=== PATIENT | female | born 1930 | race Caucasian/White ===

== ENCOUNTER 2016-12-19 16:06 | Inpatient (IN) | payer OTHER ==
[~2016-12-19] VITALS: Ht 160 cm; Wt 74.1 kg
[~2016-12-19 16:06] MED LIST: Ascorbic Acid,Ester- PO; Coumadin Protocol PO; Dulcolax PO; HYDRODIURIL,ORE25 MG PO; Hydrodiuril,Oretic,E PO; LASIX20 MG PO; LEVOTHYROXINE75 MCG PO; LORTAB 7.5/51 TABLET PO; Levothroid,Synthroid PO; MAGNESIUM250 MG PO; METOPROLOL TAR100 MG PO; Oscal 500 w/Vitamin PO; PARAFON FORTE500 MG PO; POTASSIUM CHLO10 ME3 PO; PRAVACHOL10 MG PO; PRAVASTATIN SOD10 MG PO; Santyl TP; TOPROL XL100 MG PO; Tylenol Regular Stre PO; WARFARIN SODIUM5 MG PO; XOPENEX1.25 MG/0. IH
[2016-12-19 16:35] LABS: EOSINOPHIL (%) 1.4 % (0-5); EOSINOPHIL COUNT 0.1 K/uL (0-0.3); HEMATOCRIT 40.9 % (36.0-46.0); IMMATURE GRANULOCYTE (%) 0.1 % (0.0-0.7); INSTRUMENT ABS NEUTROPHIL CT 4.9 K/uL; LYMPHOCYTE COUNT 1.7 K/uL (1.0-2.8); MCH 32.1 PG (29.0-34.0); MCHC 33.3 G/DL (30.0-36.0); MCV 96.5 FL (83-99); MEAN PLAT.VOLUME 10.9 uM^3 (9.5-12.4); MONOCYTE (%) 8.3 % (3-12); MONOCYTE COUNT 0.6 K/uL (0-0.8); NEUTROPHIL (%) 66.6 % (45-76); NEUTROPHIL COUNT 4.9 K/uL (1.8-6.4); PLATELET COUNT 154 K/uL (156-360); RBC DIS.WIDTH-CV 12.9 % (11.8-14.6); RBC DIS.WIDTH-SD 45.9 % (39-53); RED BLOOD COUNT 4.24 M/uL (3.80-5.20); WHITE BLOOD COUNT 7.4 K/uL (4.1-10.2)
[2016-12-19 16:42] LABS: INTER. NORMALIZED RATIO 1.8; PROTHROMBIN TIME 19.7 SEC (10.2-12.9)
[2016-12-19 16:43] LABS: CHLORIDE 106 mEq/L (99-109); POTASSIUM 3.8 mEq/L (3.7-5.4); SODIUM 140 mEq/L (136-147)
[2016-12-19 16:46] LABS: GLUCOSE 135 mg/dL (70-99)
[2016-12-19 16:47] LABS: ANION GAP 11 MEQ/L (2-14); TOTAL BILIRUBIN 1.1 mg/dL (0.0-1.0)
[2016-12-19 16:49] LABS: ALKALINE PHOSPHATASE 99 IU/L (3-129); GFR ESTIMATE (CALCULATED) 38 mL/min/
[2016-12-19 16:50] LABS: UREA NITROGEN (BUN) 18 mg/dL (9-23)
[2016-12-19 18:51] LABS: ADD MIUA? NO; BILIRUBIN NEGATIVE; BLOOD NEGATIVE; COLOR STRAW ((YELLOW)); GLUCOSE (STRIP) 50; KETONES 5; LEUKOCYTES NEGATIVE; NITRITE NEGATIVE; PROTEIN (STRIP) NEGATIVE; SPECIFIC GRAVITY 1.009 (1.000-1.030); UCUL ADDED? NO; UROBILINOGEN 0.2 MG/DL (0.2-1.0)
[2016-12-19] MEDS ORDERED: WARFARIN SODIUM4 MG PO (20:35)
[2016-12-19] MEDS ORDERED: LOPRESSOR50 MG PO (20:36)
[2016-12-19] MEDS ORDERED: MAGNESIUM400 M1 PO (20:36)
[2016-12-19] MEDS ORDERED: VITAMIN D34000 UNIT PO (20:37)
[2016-12-19 23:28] VITALS: BP 123/69
[2016-12-20 03:31] VITALS: BP 106/63
[2016-12-20 07:07] LABS: MCH 33.3 PG (29.0-34.0); MEAN PLAT.VOLUME 11.5 uM^3 (9.5-12.4); PLATELET COUNT 146 K/uL (156-360); RBC DIS.WIDTH-CV 13.2 % (11.8-14.6); RBC DIS.WIDTH-SD 47.8 % (39-53); RED BLOOD COUNT 3.57 M/uL (3.80-5.20); WHITE BLOOD COUNT 9.7 K/uL (4.1-10.2)
[2016-12-20 07:12] LABS: INTER. NORMALIZED RATIO 1.6; PROTHROMBIN TIME 17.4 SEC (10.2-12.9)
[2016-12-20 07:33] VITALS: BP 137/80
[2016-12-20 07:37] LABS: ANION GAP 10 MEQ/L (2-14); CHLORIDE 103 MEQ/L (99-109); GFR ESTIMATE (CALCULATED) 45 mL/min/; GLUCOSE 105 mg/dL (70-99); POTASSIUM 4.4 MEQ/L (3.7-5.4); SAMPLE HEMOLYSIS CHECK 0; SAMPLE ICTERIC CHECK 0; SAMPLE LIPEMIA CHECK 0; SODIUM 142 MEQ/L (136-147); UREA NITROGEN (BUN) 19 mg/dL (9-23)
[2016-12-20 10:49] VITALS: BP 123/64
[2016-12-20 15:33] VITALS: BP 119/82
[2016-12-20 19:54] VITALS: BP 131/61
[2016-12-20 23:28] VITALS: BP 132/81
[2016-12-21 03:52] VITALS: BP 129/73
[2016-12-21 05:57] LABS: HEMATOCRIT 36.3 % (36.0-46.0); MCH 33.3 PG (29.0-34.0); MCHC 33.9 G/DL (30.0-36.0); MCV 98.4 FL (83-99); MEAN PLAT.VOLUME 11.4 uM^3 (9.5-12.4); PLATELET COUNT 133 K/uL (156-360); RBC DIS.WIDTH-CV 13.1 % (11.8-14.6); RBC DIS.WIDTH-SD 46.9 % (39-53); RED BLOOD COUNT 3.69 M/uL (3.80-5.20); WHITE BLOOD COUNT 10.4 K/uL (4.1-10.2)
[2016-12-21 06:30] LABS: ANION GAP 10 MEQ/L (2-14); CHLORIDE 104 MEQ/L (99-109); GFR ESTIMATE (CALCULATED) 56 mL/min/; GLUCOSE 140 mg/dL (70-99); POTASSIUM 4.4 MEQ/L (3.7-5.4); SAMPLE HEMOLYSIS CHECK 0; SAMPLE ICTERIC CHECK 0; SAMPLE LIPEMIA CHECK 0; SODIUM 138 MEQ/L (136-147); UREA NITROGEN (BUN) 25 mg/dL (9-23)
[2016-12-21 07:27] VITALS: BP 117/77
[2016-12-21 10:58] VITALS: BP 126/68
[2016-12-21 13:13] LABS: INTER. NORMALIZED RATIO 1.2; PROTHROMBIN TIME 13.1 SEC (10.2-12.9)
[2016-12-21 15:57] VITALS: BP 168/76
[2016-12-21 18:53] LABS: INTER. NORMALIZED RATIO 1.2; PROTHROMBIN TIME 12.9 SEC (10.2-12.9)
[2016-12-21 20:18] VITALS: BP 100/55
[2016-12-21 23:42] VITALS: BP 96/72
[2016-12-22] VITALS (7 sets, daily range): BP systolic 92–161; BP diastolic 56–76
[2016-12-22 07:01] LABS: INTER. NORMALIZED RATIO 1.3
[2016-12-22 07:08] LABS: HEMATOCRIT 29.7 % (36.0-46.0); MCH 34.3 PG (29.0-34.0); MCHC 34.7 G/DL (30.0-36.0); MEAN PLAT.VOLUME 11.3 uM^3 (9.5-12.4); PLATELET COUNT 135 K/uL (156-360); RBC DIS.WIDTH-CV 13.2 % (11.8-14.6); RBC DIS.WIDTH-SD 46.7 % (39-53); WHITE BLOOD COUNT 10.4 K/uL (4.1-10.2)
[2016-12-22 07:18] LABS: TROP-I INTERPRETATION NEGATIVE; TROPONIN-I 0.03 ng/mL (0.0-0.30)
[2016-12-22 07:24] LABS: ANION GAP 9 MEQ/L (2-14); CHLORIDE 104 MEQ/L (99-109); GFR ESTIMATE (CALCULATED) 45 mL/min/; GLUCOSE 125 mg/dL (70-99); POTASSIUM 4.6 MEQ/L (3.7-5.4); SAMPLE HEMOLYSIS CHECK 0; SAMPLE ICTERIC CHECK 0; SAMPLE LIPEMIA CHECK 0; SODIUM 138 MEQ/L (136-147); UREA NITROGEN (BUN) 28 mg/dL (9-23)
[2016-12-22 17:07] LABS: INTER. NORMALIZED RATIO 1.3; PROTHROMBIN TIME 14.3 SEC (10.2-12.9)
[2016-12-23 04:39] VITALS: BP 155/72
[2016-12-23 06:16] LABS: HEMATOCRIT 29.3 % (36.0-46.0); MCH 33.1 PG (29.0-34.0); MCHC 33.8 G/DL (30.0-36.0); MEAN PLAT.VOLUME 10.8 uM^3 (9.5-12.4); PLATELET COUNT 155 K/uL (156-360); RBC DIS.WIDTH-CV 13.1 % (11.8-14.6); RBC DIS.WIDTH-SD 46.6 % (39-53); RED BLOOD COUNT 2.99 M/uL (3.80-5.20); WHITE BLOOD COUNT 10.1 K/uL (4.1-10.2)
[2016-12-23 06:40] LABS: ANION GAP 8 MEQ/L (2-14); CHLORIDE 106 MEQ/L (99-109); GFR ESTIMATE (CALCULATED) > 59 mL/min/; GLUCOSE 122 mg/dL (70-99); POTASSIUM 4.2 MEQ/L (3.7-5.4); SAMPLE HEMOLYSIS CHECK 0; SAMPLE ICTERIC CHECK 0; SAMPLE LIPEMIA CHECK 0; SODIUM 139 MEQ/L (136-147); UREA NITROGEN (BUN) 19 mg/dL (9-23)
[2016-12-23 06:41] LABS: INTER. NORMALIZED RATIO 1.5; PROTHROMBIN TIME 16.4 SEC (10.2-12.9)
[2016-12-23 07:49] VITALS: BP 149/82
[2016-12-23 10:58] VITALS: BP 104/56
[2016-12-23 15:40] VITALS: BP 118/61
[2016-12-23 15:45] LABS: INTER. NORMALIZED RATIO 1.5; PROTHROMBIN TIME 16.6 SEC (10.2-12.9)
[2016-12-23 19:50] VITALS: BP 114/66
[2016-12-23 23:25] VITALS: BP 107/52
[2016-12-24 04:02] VITALS: BP 120/65
[2016-12-24 06:44] LABS: INTER. NORMALIZED RATIO 1.6; PROTHROMBIN TIME 17.7 SEC (10.2-12.9)
[2016-12-24 07:35] VITALS: BP 100/65
[2016-12-24] MEDS ORDERED: SENNA PLUS TAB1 EACH PO (10:05)
[2016-12-24] MEDS ORDERED: OXYCODONE HCL5 MG PO (10:05)
[2016-12-24] MEDS ORDERED: POLYETHYLENE GL17 GM PO (10:05)
[2016-12-24] MEDS ORDERED: LIDOCAINE1 EACH TD (10:05)
[2016-12-24] MEDS ORDERED: THERAGRAN1 TABLET PO (14:31)
[2016-12-24] MEDS ORDERED: SENOKOT S,PE1 TABLET PO (14:32)
[2016-12-24] MEDS ORDERED: COLACE100 MG PO (14:33)
[2016-12-24] MEDS ORDERED: TUMS500 MG PO (14:33)
[2016-12-24] MEDS ORDERED: DULCOLAX10 MG PR (14:34)
[2016-12-24] MEDS ORDERED: ZOFRAN4 MG PO (14:35)
[2016-12-24] MEDS ORDERED: TORADOL10 MG IV ×2 (14:36→14:37)
[2016-12-24] MEDS ORDERED: NORCO 5/3251 TABLET PO (14:37)
== END 2016-12-24 13:47 | DRG 481 ==
LOC: EME 16:06 → 3EAST 18:29 → EDOF 18:29 → ENRESERV 18:29 → 3EAST 20:40
PROVIDERS: Emergency Medicine; Hospitalist; Internal Medicine; Internal Medicine Cardiovascular Disease; Orthopaedic Surgery; Physician Assistant
PROC: 0QS604Z Reposition Right Upper Femur with Internal Fixation Device, Open Approach (ICD-10-PCS; principal; 2016-12-21)
DX: S72.141A Displaced intertrochanteric fracture of right femur, initial encounter for closed fracture (principal); S09.90XA Unspecified injury of head, initial encounter; W01.0XXA Fall on same level from slipping, tripping and stumbling without subsequent striking against object, initial encounter; Y92.009 Unspecified place in unspecified non-institutional (private) residence as the place of occurrence of the external cause; D62 Acute posthemorrhagic anemia; I95.9 Hypotension, unspecified; I11.0 Hypertensive heart disease with heart failure; I50.9 Heart failure, unspecified; I48.2 Chronic atrial fibrillation; K59.00 Constipation, unspecified; E03.9 Hypothyroidism, unspecified; R07.9 Chest pain, unspecified; N39.3 Stress incontinence (female) (male); E78.5 Hyperlipidemia, unspecified; K21.9 Gastro-esophageal reflux disease without esophagitis; M81.0 Age-related osteoporosis without current pathological fracture; Z79.01 Long term (current) use of anticoagulants; Z86.711 Personal history of pulmonary embolism
CPT/HCPCS: 70450; 71010; 73501; 73502; 73552; 76000; 80048; 80053; 81003; 84484; 85025; 85027; 85610; 86900; 86901; 93005; 94799; 99281; 99285; C1713; J0330; J0690; J1170; J1885; J1940; J2250; J2270; J2405; J2710; J3010; J7120

== ENCOUNTER 2016-12-24 12:02 | Inpatient (IN) | payer OTHER ==
[~2016-12-24] VITALS: Ht 160 cm; Wt 54.6 kg
[~2016-12-24 12:02] MED LIST changes: +LIDOCAINE1 EACH TD; +LOPRESSOR50 MG PO; +MAGNESIUM400 M1 PO; +OXYCODONE HCL5 MG PO; +POLYETHYLENE GL17 GM PO; +SENNA PLUS TAB1 EACH PO; +VITAMIN D34000 UNIT PO; +WARFARIN SODIUM4 MG PO
[2016-12-24 14:11] VITALS: BP 98/68
[2016-12-24] MEDS ORDERED: THERAGRAN1 TABLET PO (14:31)
[2016-12-24] MEDS ORDERED: SENOKOT S,PE1 TABLET PO (14:32)
[2016-12-24] MEDS ORDERED: TUMS500 MG PO (14:33)
[2016-12-24] MEDS ORDERED: COLACE100 MG PO (14:33)
[2016-12-24] MEDS ORDERED: DULCOLAX10 MG PR (14:34)
[2016-12-24] MEDS ORDERED: ZOFRAN4 MG PO (14:35)
[2016-12-24] MEDS ORDERED: TORADOL10 MG IV ×2 (14:36→14:37)
[2016-12-24] MEDS ORDERED: NORCO 5/3251 TABLET PO (14:37)
[2016-12-24 23:30] VITALS: BP 130/58
[2016-12-25 05:42] VITALS: BP 126/72
[2016-12-25 05:50] LABS: HEMATOCRIT 27.2 % (36.0-46.0); MCH 33.6 PG (29.0-34.0); MCHC 34.2 G/DL (30.0-36.0); MCV 98.2 FL (83-99); MEAN PLAT.VOLUME 10.4 uM^3 (9.5-12.4); PLATELET COUNT 183 K/uL (156-360); RBC DIS.WIDTH-CV 13.2 % (11.8-14.6); RBC DIS.WIDTH-SD 46.8 % (39-53); RED BLOOD COUNT 2.77 M/uL (3.80-5.20); WHITE BLOOD COUNT 9.1 K/uL (4.1-10.2)
[2016-12-25 05:59] LABS: PROTHROMBIN TIME 23.1 SEC (10.2-12.9)
[2016-12-25 07:18] LABS: ALKALINE PHOSPHATASE 88 IU/L (3-129); ANION GAP 5 MEQ/L (2-14); CHLORIDE 107 MEQ/L (99-109); GFR ESTIMATE (CALCULATED) > 59 mL/min/; GLUCOSE 98 mg/dL (70-99); POTASSIUM 4.2 MEQ/L (3.7-5.4); SAMPLE HEMOLYSIS CHECK 0; SAMPLE ICTERIC CHECK 0; SAMPLE LIPEMIA CHECK 0; SODIUM 138 MEQ/L (136-147); TOTAL BILIRUBIN 2.7 MG/DL (0.0-1.0); UREA NITROGEN (BUN) 18 mg/dL (9-23)
[2016-12-25 15:54] VITALS: BP 120/68
[2016-12-26 06:06] VITALS: BP 158/68
[2016-12-26 06:37] LABS: INTER. NORMALIZED RATIO 2.9; PROTHROMBIN TIME 33.8 SEC (10.2-12.9)
[2016-12-26 15:00] VITALS: BP 122/68
[2016-12-27 05:41] VITALS: BP 120/80
[2016-12-27 05:57] LABS: INTER. NORMALIZED RATIO 3.3; PROTHROMBIN TIME 38.3 SEC (10.2-12.9)
[2016-12-27 15:14] VITALS: BP 107/59
[2016-12-28 05:27] VITALS: BP 157/70
[2016-12-28 05:41] LABS: INTER. NORMALIZED RATIO 3.3; PROTHROMBIN TIME 37.5 SEC (10.2-12.9)
[2016-12-28 16:24] VITALS: BP 128/76
[2016-12-29 05:31] VITALS: BP 132/68
[2016-12-29 07:09] LABS: BASOPHIL COUNT 0.1 K/uL (0-0.1); EOSINOPHIL (%) 2.8 % (0-5); EOSINOPHIL COUNT 0.3 K/uL (0-0.3); HEMATOCRIT 30.2 % (36.0-46.0); IMMATURE GRANULOCYTE (%) 1.2 % (0.0-0.7); IMMATURE GRANULOCYTE COUNT 0.1 K/uL; INSTRUMENT ABS NEUTROPHIL CT 5.6 K/uL; LYMPHOCYTE COUNT 2.2 K/uL (1.0-2.8); MCH 33.2 PG (29.0-34.0); MCHC 33.4 G/DL (30.0-36.0); MCV 99.3 FL (83-99); MONOCYTE (%) 11.1 % (3-12); NEUTROPHIL (%) 60.5 % (45-76); NEUTROPHIL COUNT 5.6 K/uL (1.8-6.4); PLATELET COUNT 336 K/uL (156-360); RBC DIS.WIDTH-CV 13.9 % (11.8-14.6); RBC DIS.WIDTH-SD 49.7 % (39-53); RED BLOOD COUNT 3.04 M/uL (3.80-5.20); WHITE BLOOD COUNT 9.2 K/uL (4.1-10.2)
[2016-12-29 07:28] LABS: INTER. NORMALIZED RATIO 2.5; PROTHROMBIN TIME 28.1 SEC (10.2-12.9)
[2016-12-29 07:32] LABS: ANION GAP 8 MEQ/L (2-14); CHLORIDE 107 MEQ/L (99-109); GFR ESTIMATE (CALCULATED) > 59 mL/min/; GLUCOSE 95 mg/dL (70-99); POTASSIUM 4.8 MEQ/L (3.7-5.4); SAMPLE HEMOLYSIS CHECK 0; SAMPLE ICTERIC CHECK 0; SAMPLE LIPEMIA CHECK 0; SODIUM 140 MEQ/L (136-147); UREA NITROGEN (BUN) 19 mg/dL (9-23)
[2016-12-29 07:33] LABS: ALKALINE PHOSPHATASE 150 IU/L (3-129); TOTAL BILIRUBIN 1.7 MG/DL (0.0-1.0)
[2016-12-29 15:51] VITALS: BP 104/64
[2016-12-30 05:25] VITALS: BP 161/71
[2016-12-30 08:11] LABS: ANION GAP 7 MEQ/L (2-14); CHLORIDE 106 MEQ/L (99-109); POTASSIUM 5.2 MEQ/L (3.7-5.4); SAMPLE HEMOLYSIS CHECK 0; SAMPLE ICTERIC CHECK 0; SAMPLE LIPEMIA CHECK 0; SODIUM 137 MEQ/L (136-147); TOTAL BILIRUBIN 1.7 MG/DL (0.0-1.0)
[2016-12-30 08:16] LABS: ALKALINE PHOSPHATASE 171 IU/L (3-129); GFR ESTIMATE (CALCULATED) > 59 mL/min/; GLUCOSE 105 mg/dL (70-99); UREA NITROGEN (BUN) 19 mg/dL (9-23)
[2016-12-30 08:20] LABS: INTER. NORMALIZED RATIO 2.2; PROTHROMBIN TIME 24.7 SEC (10.2-12.9)
[2016-12-30 15:10] VITALS: BP 125/84
[2016-12-31 05:15] VITALS: BP 110/70
[2016-12-31 07:18] LABS: INTER. NORMALIZED RATIO 2.3; PROTHROMBIN TIME 25.8 SEC (10.2-12.9)
[2016-12-31 14:59] VITALS: BP 114/59
[2017-01-01 05:19] VITALS: BP 118/52
[2017-01-01 07:33] LABS: INTER. NORMALIZED RATIO 2.2; PROTHROMBIN TIME 25.1 SEC (10.2-12.9)
[2017-01-01 15:58] VITALS: BP 120/74
[2017-01-02 06:11] VITALS: BP 131/61
[2017-01-02 07:51] LABS: INTER. NORMALIZED RATIO 1.7; PROTHROMBIN TIME 18.8 SEC (10.2-12.9)
[2017-01-02 15:34] VITALS: BP 138/78
[2017-01-02 21:24] VITALS: BP 122/77
[2017-01-03 06:09] VITALS: BP 136/71
[2017-01-03 06:45] LABS: HEMATOCRIT 32.1 % (36.0-46.0); MCH 31.8 PG (29.0-34.0); MCHC 31.8 G/DL (30.0-36.0); MEAN PLAT.VOLUME 9.7 uM^3 (9.5-12.4); PLATELET COUNT 423 K/uL (156-360); RBC DIS.WIDTH-CV 14.1 % (11.8-14.6); RBC DIS.WIDTH-SD 51.6 % (39-53); RED BLOOD COUNT 3.21 M/uL (3.80-5.20); WHITE BLOOD COUNT 8.3 K/uL (4.1-10.2)
[2017-01-03 06:46] LABS: INTER. NORMALIZED RATIO 1.8; PROTHROMBIN TIME 20.1 SEC (10.2-12.9)
[2017-01-03 07:14] LABS: ANION GAP 7 MEQ/L (2-14); CHLORIDE 107 MEQ/L (99-109); GFR ESTIMATE (CALCULATED) > 59 mL/min/; GLUCOSE 96 mg/dL (70-99); POTASSIUM 4.8 MEQ/L (3.7-5.4); SAMPLE HEMOLYSIS CHECK 0; SAMPLE ICTERIC CHECK 0; SAMPLE LIPEMIA CHECK 0; SODIUM 140 MEQ/L (136-147); TOTAL BILIRUBIN 1.5 MG/DL (0.0-1.0); UREA NITROGEN (BUN) 17 mg/dL (9-23)
[2017-01-03 07:17] LABS: ALKALINE PHOSPHATASE 228 IU/L (3-129)
[2017-01-03 15:54] VITALS: BP 133/80
[2017-01-04 05:12] VITALS: BP 142/83
[2017-01-04 08:15] VITALS: BP 143/70
[2017-01-04 15:40] VITALS: BP 138/76
[2017-01-05 04:50] VITALS: BP 126/72
[2017-01-05 06:02] LABS: INTER. NORMALIZED RATIO 2.1; PROTHROMBIN TIME 23.2 SEC (10.2-12.9)
[2017-01-05] MEDS ORDERED: NORCO 5/3251 TABLET PO (11:21)
== END 2017-01-05 14:40 | disposition home health service (06) | DRG 560 ==
LOC: 3WEST 12:02 → ENPENDDIS 01-05 → 3WEST 01-05 14:40
PROVIDERS: Physical Medicine & Rehabilitation; Physical Medicine & Rehabilitation Pain Medicine; Psychiatry & Neurology Neurology
PROC: F07M0ZZ Range of Motion and Joint Mobility Treatment of Musculoskeletal System - Whole Body (ICD-10-PCS; principal; 2016-12-24)
DX: S72.001D Fracture of unspecified part of neck of right femur, subsequent encounter for closed fracture with routine healing (principal); D62 Acute posthemorrhagic anemia; G89.18 Other acute postprocedural pain; M25.551 Pain in right hip; R26.2 Difficulty in walking, not elsewhere classified; G89.29 Other chronic pain; E03.9 Hypothyroidism, unspecified; E78.5 Hyperlipidemia, unspecified; K21.9 Gastro-esophageal reflux disease without esophagitis; I11.0 Hypertensive heart disease with heart failure; I50.9 Heart failure, unspecified; I48.2 Chronic atrial fibrillation; K59.00 Constipation, unspecified; Z79.01 Long term (current) use of anticoagulants; Z88.7 Allergy status to serum and vaccine
CPT/HCPCS: 73502; 80053; 85025; 85027; 85610; 93971; 97110 GO; 97530 GP